=== PATIENT | male | born 1955 | race Caucasian/White ===

== ENCOUNTER 2019-02-04 17:10 | Inpatient (IN) | payer MEDICAID ==
[~2019-02-04] VITALS: Ht 170.2 cm; Wt 75.4 kg
[2019-02-04] MEDS ORDERED: DEXAMETHASONE 10 MG/ML 1 ML INJ IV STA (20:54)
[2019-02-04] MEDS ORDERED: CEFEPIME 2GM/50 ML (PMX) 50 ML IVPB STA (20:54)
[2019-02-04] MEDS ORDERED: ACETAMINOPHEN 325 MG TAB PO STA (20:54)
[2019-02-04] MEDS ORDERED: SODIUM CHLORIDE 0.9% 1L BAG IV* STA (20:54)
[2019-02-04] MEDS ORDERED: IPRATROPIUM (NEB) 0.5 MG/2.5 ML AMP INH STA (20:54)
[2019-02-04] MEDS ORDERED: MAGNESIUM SULFATE 2 GM/50 ML 50 ML IVPB STA (20:54)
[2019-02-04] MEDS ORDERED: ALBUTEROL 0.5% (NEB) 2.5 MG/0.5 ML AMP INH STA (20:54)
[2019-02-04] MEDS ORDERED: VANCOMYCIN 1 GM (PMX) 250 ML IVPB ONE (21:00)
--- NOTE | 2019-02-04 21:04 | ERD ---
ER Documentation Chief Complaint Chief Complaint RDS/SOB WITH HX OF COPD, PT DENIES CP OR DIZZINESS HPI 63-year-old gentleman with a long-term history of smoking who is currently still smoking with potential diagnosis of COPD presents with several days of cough congestion and shortness of breath. Patient does not use home oxygen. No history of coronary disease or CHF. The patient and family members are somewhat limited historian's and limited knowledge about the patient's past medical history. He denies any chest pain. He was noted to have a low-grade temperature at triage. During the patient's encounter translation services were utilized Language: Azeri Source: In person ROS All systems reviewed and are negative except as per history of present illness. Physical Exam Vitals Vital Signs Date Temp Pulse Resp B/P (MAP) Pulse Ox O2 O2 Flow FiO2 Time Delivery Rate 02/04/19 99 2.0 21:18 02/04/19 118 24 99 Nasal 2.0 21:18 Cannula 02/04/19 100.9 130 28 149/75 91 17:26 (99) Physical Exam General: Slight increased work of breathing, talking and slightly shorter sentences Head: Normocephalic, atraumatic. Eyes: Pupils equally reactive, EOM intact ENT: Moist mucous membranes Neck: Supple, no lymphadenopathy Respiratory: Wheezing and rhonchi bilaterally, accessory muscle use Cardiovascular: Tachycardia, no murmurs, rubs, or gallops Abdominal: Soft, non-tender, non-distended, no peritoneal signs : Deferred MSK: No edema, no unilateral swelling, 5/5 strength Neurologic: Alert and oriented, moving all extremities, normal speech, no focal weakness, no cerebellar signs Skin: No rash Psych: Normal mood Result Diagram: 02/04/19210502/04/192105 Results 24 hrs Laboratory Tests Test 02/04/19 21:06 White Blood Count 11.3 10^3/ul Red Blood Count 3.53 10^6/ul Hemoglobin 13.3 g/dl Hematocrit 39.6 % Mean Corpuscular Volume 112.2 fl Mean Corpuscular Hemoglobin 37.7 pg Mean Corpuscular Hemoglobin Concent 33.6 g/dl Red Cell Distribution Width 13.0 % Platelet Count 331 10^3/UL Mean Platelet Volume 8.9 fl Immature Granulocytes % 0.300 % Neutrophils % 76.4 % Lymphocytes % 12.7 % Monocytes % 9.2 % Eosinophils % 1.0 % Basophils % 0.4 % Nucleated Red Blood Cells % 0.0 /100WBC Immature Granulocytes # 0.030 10^3/ul Neutrophils # 8.7 10^3/ul Lymphocytes # 1.4 10^3/ul Monocytes # 1.0 10^3/ul Eosinophils # 0.1 10^3/ul Basophils # 0.0 10^3/ul Nucleated Red Blood Cells # 0.0 10^3/ul Prothrombin Time 12.9 Sec Prothrombin Time Ratio 1.0 INR International Normalized Ratio 0.96 Activated Partial Thromboplast Time 33.3 Sec Urine Color STRAW Urine Clarity CLEAR Urine pH 7.0 Urine Specific [place] 1.010 Urine Ketones NEGATIVE mg/dL Urine Nitrite NEGATIVE mg/dL Urine Bilirubin NEGATIVE mg/dL Urine Urobilinogen NEGATIVE mg/dL Urine Leukocyte Esterase NEGATIVE [place]/ul Urine Microscopic RBC 2 /HPF Urine Microscopic WBC 0 /HPF Urine Hemoglobin 1+ mg/dL Urine Glucose NEGATIVE mg/dL Urine Total Protein NEGATIVE mg/dl Sodium Level 136 mmol/L Potassium Level 4.2 mmol/L Chloride Level 97 mmol/L Carbon Dioxide Level 27 mmol/L Anion Gap 12 Blood Urea Nitrogen 11 mg/dl Creatinine 0.62 mg/dl Est Glomerular Filtrat Rate mL/min > 60 mL/min Glucose Level 125 mg/dl Lactic Acid Level 1.2 mmol/L Calcium Level 9.1 mg/dl Total Bilirubin 0.4 mg/dl Direct Bilirubin 0.00 mg/dl Indirect Bilirubin 0.4 mg/dl Aspartate Amino Transf (AST/SGOT) 44 IU/L Alanine Aminotransferase (ALT/SGPT) 26 IU/L Alkaline Phosphatase 64 IU/L Troponin I < 0.012 ng/ml Total Protein 7.8 g/dl Albumin 4.6 g/dl Globulin 3.20 g/dl Albumin/Globulin Ratio 1.43 Current Medications Medications Dose Sig/Arely Start Time Status Last (Trade) Ordered Route PRN Stop Time Admin Dose Reason Admin Sodium 2,250 ml BOLUS OVER 2 02/04/19 DC 02/04/19 Chloride HOURS STAT 20:54 21:16 (NS) IV* 02/04/19 20:57 650 mg ONCE STAT 02/04/19 DC 02/04/19 Acetaminophen PO 20:54 21:16 (Tylenol 02/04/19 20:57 Tab) Cefepime HCl 50 ml @ ONCE STAT 02/04/19 DC 02/04/19 100 mls/hr IVPB 20:54 21:16 02/04/19 21:23 Vancomycin 250 ml @ ONCE ONCE 02/04/19 HCl 125 mls/hr IVPB 21:00 02/04/19 22:59 Albuterol 15 mg ONCE STAT 02/04/19 DC 02/04/19 (Proventil INH 20:54 21:18 0.5% (Neb)) 02/04/19 20:57 Ipratropium 2 mg ONCE STAT 02/04/19 DC 02/04/19 [place] INH 20:54 21:18 (Atrovent 02/04/19 20:57 0.02% (Neb)) 10 mg ONCE STAT 02/04/19 DC 02/04/19 Dexamethasone IV 20:54 21:16 (Decadron) 02/04/19 20:57 Magnesium 50 ml @ 25 ONCE STAT 02/04/19 02/04/19 Sulfate mls/hr IVPB 20:54 21:29 02/04/19 22:53 Ondansetron 4 mg BRIDGE ORDER 02/04/19 HCl (Zofran PRN IV 22:30 Inj) NAUSEA/VOMITI 02/05/19 22:29 NG 650 mg ER BRIDGE 02/04/19 Acetaminophen PRN PO 22:30 (Tylenol .MILD PAIN 02/05/19 22:29 Tab) 1-3 OR TEMP Procedures/MDM EKG, MONITORS, & DIAGNOSTIC IMAGING: EKG: I reviewed and interpreted a 12-lead EKG. Rhythm: Sinus tachycardia ST Changes: No contiguous ST segment elevations T waves: No contiguous T wave inversions Impression: No evidence of acute cardiac ischemia Chest x-ray: I reviewed and interpreted a 1 view of the chest Mediastinum: No enlargement Cardiac silhouette: No cardiomegaly Airspace: Hyperinflated, possible right lower lobe atelectasis versus infiltrate Bones: No evidence of fracture LAB INTERPRETATION: I reviewed the laboratory testing and it shows no significant leukocytosis and normal lactic acid, negative troponin MEDICAL DECISION MAKING: Clinical signs and symptoms and presentation very consistent with COPD with exacerbation. The patient has Sirs criteria with concern for possible pneumonia. Code sepsis was initiated. At this point the patient is protecting his airway and does not require positive pressure ventilation. Low concern for CHF, acute coronary syndrome, pulmonary embolism. Patient will benefit from aggressive breathing treatments, steroids and broad- spectrum antibiotics ER COURSE: * 30 cc/kg bolus of saline provided, blood cultures prior to broad-spectrum antibiotics, antipyretics, breathing treatment and steroids given. * The patient's symptoms are improving with hour-long breathing treatment and medications as documented above. The patient has no evidence of endorgan dysfunction at this time. Mild oxygen requirement * Medical surgical admission appropriate CONSULTATION: None DISPOSITION PLAN: Accepting care team and consultations: I discussed the current laboratory data, diagnostic imaging and emergency care provided. Admitting team: Dr. Galindo Admitting team indication: Insurance directed Sepsis Documentation: Patient's infectious symptoms have not stabilized and the patient is at risk of rapid decompensation. The patient will be admitted for careful hydration, antibiotic therapy, and infectious source control. SEVERE SEPSIS CRITERIA: Infectious source: Pneumonia End organ damage indicated by: Acute Resp Failure (sat < 92% w/o oxygen) SEPSIS MANAGEMENT Time of recognition of sepsis: Upon MD assessment. Time of recognition of severe sepsis: Upon MD assessment. Time of recognition of septic shock: No septic shock at this time. 3 HOUR BUNDLE Blood cultures x 2 before broad-spectrum antibiotics: Yes 30 ml/kg NS bolus completed Initial lactate less than 2 Repeat lactate less than 2] SEPTIC SHOCK ASSESSMENT: No lactic acid > 4.0 No persistent hypotension (SBP < 90 or 40 mmHg drop, MAP < 65) despite 30 mL/kg IV fluid bolus VOLUME REASSESSMENT FOR SEPTIC SHOCK: The patient does not meet criteria for septic shock in the emergency department at this time PERSISTENT HYPOTENSION TREATMENT: Comfort care no Central line not Required Vasopressor started not required I considered further perfusion assessment with CVP measurement, SCVO2, bedside ultrasound volume assessment, passive leg raise, trial of further fluid bolus. And proceeded with 30 ml/kg fluid bolus of NSS, broad spectrum antibiotics, and admission. CRITICAL CARE Critical care time 35 minutes Emergent fluid management while maintaining close respiratory support. Provision of immediate and broad-spectrum antibiotic therapy. Simultaneous assessment for possible sources in order to direct targeted therapy. Consideration for invasive and chemical support to prevent cardiopulmonary collapse. Critical care time is independent of procedures performed. Departure Diagnosis: Primary Impression: COPD with acute exacerbation Additional Impressions: Pneumonia Pneumonia type: due to unspecified organism Laterality: right Lung location: lower lobe of lung Qualified Codes: J18.1 - Lobar pneumonia, unspecified organism Hypoxia Severe sepsis Condition: Stable KODY NICOLE MD Feb 04, 2019 21:04
[2019-02-04] MEDS ORDERED: ONDANSETRON 4 MG INJ IV PRN (22:30)
[2019-02-04] MEDS ORDERED: ACETAMINOPHEN 325 MG TAB PO PRN (22:30)
[2019-02-04] MEDS ORDERED: EFV600C PO (22:38)
[2019-02-04] MEDS ORDERED: SALBUTAMOL INH (22:42)
[2019-02-04 23:45] VITALS: BP 91/55; PULSE 99; RESP 18
[2019-02-05 01:49] VITALS: BP 145/72; PULSE 111; RESP 18
[2019-02-05 03:00] VITALS: Ht 170.2 cm; Wt 75.4 kg
[2019-02-05] MEDS ORDERED: ALBUTEROL/IPRATROPIUM (NEB) 3 ML AMP HHN PRN (04:00)
[2019-02-05] MEDS ORDERED: ACETAMINOPHEN 325 MG TAB PO PRN (04:00)
[2019-02-05] MEDS ORDERED: ONDANSETRON 4 MG INJ IV PRN (04:00)
[2019-02-05] MEDS ORDERED: NACL 0.9% 3 ML SYG IV SCH (04:00)
[2019-02-05] MEDS ORDERED: LAMI1TAB PO (04:22)
[2019-02-05] MEDS ORDERED: LORAZEPAM 2 MG INJ IV ONE (05:30)
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
[2019-02-05 08:18] VITALS: BP 100/59; PULSE 108; RESP 18
[2019-02-05] MEDS: LEVALBUTEROL (NEB) 0.63 MG/3 ML AMP HHN SCH ×5 (08:55→20:51)
[2019-02-05] MEDS: IPRATROPIUM (NEB) 0.5 MG/2.5 ML AMP HHN SCH ×5 (08:55→20:51)
[2019-02-05] MEDS ORDERED: METHYLPREDNISOLONE 125 MG INJ IV SCH ×3 (09:00→15:00)
[2019-02-05] MEDS: LEVOFLOXACIN 500MG/D5W (PMX) 100 ML IVPB SCH (09:41)
[2019-02-05] MEDS: HEPARIN 5,000 UNIT/1 ML VIAL SC SCH ×2 (09:42→21:28)
[2019-02-05] MEDS: EFAVIRENZ 600 MG TAB PO SCH (12:59)
[2019-02-05] MEDS: LAMIVUDINE/ZIDOVUDINE TAB PO SCH ×2 (12:59→21:29)
[2019-02-05 14:00] VITALS: BP 132/65; PULSE 96; RESP 18
--- NOTE | 2019-02-05 14:38 | PN ---
Date/Time of Note Date/Time of Note DATE: 02/05/19 TIME: 14:32 Assessment/Plan VTE Prophylaxis Risk score (from [place])>0 risk: 3 SCD applied (from [place]): Yes Pharmacological prophylaxis: heparin Lines/Catheters IV [facility] Saline Lock Urinary Cath still in place: No Assessment/Plan Assessment/Plan 1. COPD exacerbation, Supplemental oxygen, bronchodilators, steroid, antibiotic 2. Sepsis, improving 3. HIV disease, Continue home meds 4. Tobacco use, patch 5. DVT prophylaxis: heparin Result Diagram: 02/05/19 0459 02/05/19 0459 Results 24hrs Laboratory Tests Test 02/04/19 21:05 02/04/19 21:06 02/04/19 22:55 02/05/19 00:50 Urine Opiates Screen Negative Urine Barbiturates Negative Urine Amphetamines Negative Screen Urine Negative Benzodiazepines Screen Urine Cocaine Screen Negative Urine Cannabinoids Negative White Blood Count 11.3 H Red Blood Count 3.53 L Hemoglobin 13.3 L Hematocrit 39.6 L Mean Corpuscular 112.2 H Volume Mean Corpuscular 37.7 H Hemoglobin Mean Corpuscular 33.6 Hemoglobin Concent Red Cell 13.0 Distribution Width Platelet Count 331 Mean Platelet Volume 8.9 Immature 0.300 Granulocytes % Neutrophils % 76.4 Lymphocytes % 12.7 L Monocytes % 9.2 Eosinophils % 1.0 Basophils % 0.4 Nucleated Red Blood 0.0 Cells % Immature 0.030 Granulocytes # Neutrophils # 8.7 H Lymphocytes # 1.4 Monocytes # 1.0 H Eosinophils # 0.1 Basophils # 0.0 Nucleated Red Blood 0.0 Cells # Prothrombin Time 12.9 Prothrombin Time 1.0 Ratio INR International 0.96 Normalized Ratio Activated 33.3 Partial Thromboplast Time Urine Color STRAW Urine Clarity CLEAR Urine pH 7.0 Urine Specific 1.010 [place] Urine Ketones NEGATIVE Urine Nitrite NEGATIVE Urine Bilirubin NEGATIVE Urine Urobilinogen NEGATIVE Urine Leukocyte NEGATIVE Esterase Urine Microscopic 2 RBC Urine Microscopic 0 WBC Urine Hemoglobin 1+ H Urine Glucose NEGATIVE Urine Total Protein NEGATIVE Sodium Level 136 Potassium Level 4.2 Chloride Level 97 Carbon Dioxide Level 27 Anion Gap 12 Blood Urea Nitrogen 11 Creatinine 0.62 Est Glomerular > 60 Filtrat Rate mL/min Glucose Level 125 Lactic Acid Level 1.2 0.7 1.1 Calcium Level 9.1 Total Bilirubin 0.4 Direct Bilirubin 0.00 Indirect Bilirubin 0.4 Aspartate Amino 44 Transf (AST/SGOT) Alanine 26 Aminotransferase (AL T/SGPT) Alkaline Phosphatase 64 Troponin I < 0.012 Total Protein 7.8 Albumin 4.6 Globulin 3.20 Albumin/Globulin 1.43 Ratio Test 02/05/19 04:59 02/05/19 06:04 White Blood Count 7.7 # Red Blood Count 3.27 L Hemoglobin 12.3 L Hematocrit 37.5 L Mean Corpuscular 114.7 H Volume Mean Corpuscular 37.6 H Hemoglobin Mean Corpuscular 32.8 Hemoglobin Concent Red Cell 13.0 Distribution Width Platelet Count 306 Mean Platelet Volume 9.1 Immature 0.400 Granulocytes % Neutrophils % 91.6 H Lymphocytes % 6.1 L Monocytes % 1.8 Eosinophils % 0.0 Basophils % 0.1 Nucleated Red Blood 0.0 Cells % Immature 0.030 Granulocytes # Neutrophils # 7.0 Lymphocytes # 0.5 L Monocytes # 0.1 L Eosinophils # 0.0 Basophils # 0.0 Nucleated Red Blood 0.0 Cells # Sodium Level 139 Potassium Level 4.6 Chloride Level 105 Carbon Dioxide Level 25 Anion Gap 9 Blood Urea Nitrogen 10 Creatinine 0.54 L Est Glomerular > 60 Filtrat Rate mL/min Glucose Level 156 Calcium Level 8.6 Phosphorus Level 3.3 Magnesium Level 2.4 Total Bilirubin 0.3 Direct Bilirubin 0.00 Indirect Bilirubin 0.3 Aspartate Amino 42 Transf (AST/SGOT) Alanine 21 Aminotransferase (AL T/SGPT) Alkaline Phosphatase 54 Total Protein 6.9 Albumin 3.8 Globulin 3.10 Albumin/Globulin 1.22 Ratio Ethyl Alcohol Level < 10.0 H Subjective 24 Hr Interval Summary Free Text/Dictation shortness of breath and wheezing, less than yesterday Exam/Review of Systems Exam Vitals Vital Signs Date Temp Pulse Resp B/P (MAP) Pulse Ox O2 O2 Flow FiO2 Time Delivery Rate 02/05/19 106 20 94 Nasal 4.0 13:43 Cannula 02/05/19 97.3 100/59 08:18 (73) Intake and Output 02/04/19 02/04/19 02/05/19 1515:00 23:00 07:00 IntakeIntake Total 2600 ml OutputOutput Total 600 ml BalanceBalance 2000 ml Constitutional: alert, oriented, well developed Head: normocephalic, atraumatic Eyes: nl conjunctiva, EOMI, nl lids, PERRL ENMT: nl external ears & nose, nl lips & teeth, nl nasal mucosa & septum Neck: supple, non-tender Respiratory: wheezing (diffuse) Cardiovascular: regular rate and rhythm, nl pulses; No bruits, No diastolic murmur, No edema, No gallop, No irregular rhythm, No jugular venous distention (JVD), No murmurs/extra sounds, No rub, No systolic murmur, No S3, No S4, No other Gastrointestinal: soft, nl liver, spleen, non-tender Musculoskeletal: nl extremities to inspection Extremities: normal pulses; No calf tenderness, No cyanosis, No clubbing, No edema, No pitting pedal edema, No palpable cord, No tenderness, No other Neurological: [employer] II-XII intact, nl mental status, nl speech, nl strength Results Results 24hrs Laboratory Tests Test 02/04/19 21:05 02/04/19 21:06 02/04/19 22:55 02/05/19 00:50 Urine Opiates Screen Negative Urine Barbiturates Negative Urine Amphetamines Negative Screen Urine Negative Benzodiazepines Screen Urine Cocaine Screen Negative Urine Cannabinoids Negative White Blood Count 11.3 H Red Blood Count 3.53 L Hemoglobin 13.3 L Hematocrit 39.6 L Mean Corpuscular 112.2 H Volume Mean Corpuscular 37.7 H Hemoglobin Mean Corpuscular 33.6 Hemoglobin Concent Red Cell 13.0 Distribution Width Platelet Count 331 Mean Platelet Volume 8.9 Immature 0.300 Granulocytes % Neutrophils % 76.4 Lymphocytes % 12.7 L Monocytes % 9.2 Eosinophils % 1.0 Basophils % 0.4 Nucleated Red Blood 0.0 Cells % Immature 0.030 Granulocytes # Neutrophils # 8.7 H Lymphocytes # 1.4 Monocytes # 1.0 H Eosinophils # 0.1 Basophils # 0.0 Nucleated Red Blood 0.0 Cells # Prothrombin Time 12.9 Prothrombin Time 1.0 Ratio INR International 0.96 Normalized Ratio Activated 33.3 Partial Thromboplast Time Urine Color STRAW Urine Clarity CLEAR Urine pH 7.0 Urine Specific 1.010 [place] Urine Ketones NEGATIVE Urine Nitrite NEGATIVE Urine Bilirubin NEGATIVE Urine Urobilinogen NEGATIVE Urine Leukocyte NEGATIVE Esterase Urine Microscopic 2 RBC Urine Microscopic 0 WBC Urine Hemoglobin 1+ H Urine Glucose NEGATIVE Urine Total Protein NEGATIVE Sodium Level 136 Potassium Level 4.2 Chloride Level 97 Carbon Dioxide Level 27 Anion Gap 12 Blood Urea Nitrogen 11 Creatinine 0.62 Est Glomerular > 60 Filtrat Rate mL/min Glucose Level 125 Lactic Acid Level 1.2 0.7 1.1 Calcium Level 9.1 Total Bilirubin 0.4 Direct Bilirubin 0.00 Indirect Bilirubin 0.4 Aspartate Amino 44 Transf (AST/SGOT) Alanine 26 Aminotransferase (AL T/SGPT) Alkaline Phosphatase 64 Troponin I < 0.012 Total Protein 7.8 Albumin 4.6 Globulin 3.20 Albumin/Globulin 1.43 Ratio Test 02/05/19 04:59 02/05/19 06:04 White Blood Count 7.7 # Red Blood Count 3.27 L Hemoglobin 12.3 L Hematocrit 37.5 L Mean Corpuscular 114.7 H Volume Mean Corpuscular 37.6 H Hemoglobin Mean Corpuscular 32.8 Hemoglobin Concent Red Cell 13.0 Distribution Width Platelet Count 306 Mean Platelet Volume 9.1 Immature 0.400 Granulocytes % Neutrophils % 91.6 H Lymphocytes % 6.1 L Monocytes % 1.8 Eosinophils % 0.0 Basophils % 0.1 Nucleated Red Blood 0.0 Cells % Immature 0.030 Granulocytes # Neutrophils # 7.0 Lymphocytes # 0.5 L Monocytes # 0.1 L Eosinophils # 0.0 Basophils # 0.0 Nucleated Red Blood 0.0 Cells # Sodium Level 139 Potassium Level 4.6 Chloride Level 105 Carbon Dioxide Level 25 Anion Gap 9 Blood Urea Nitrogen 10 Creatinine 0.54 L Est Glomerular > 60 Filtrat Rate mL/min Glucose Level 156 Calcium Level 8.6 Phosphorus Level 3.3 Magnesium Level 2.4 Total Bilirubin 0.3 Direct Bilirubin 0.00 Indirect Bilirubin 0.3 Aspartate Amino 42 Transf (AST/SGOT) Alanine 21 Aminotransferase (AL T/SGPT) Alkaline Phosphatase 54 Total Protein 6.9 Albumin 3.8 Globulin 3.10 Albumin/Globulin 1.22 Ratio Ethyl Alcohol Level < 10.0 H Medications Medication Current Medications Ondansetron HCl (Zofran Inj) 4 mg BRIDGE ORDER PRN IV NAUSEA/VOMITING; Start 02/04/19 at 22:30; Stop 02/05/19 at 22:29 Acetaminophen (Tylenol Tab) 650 mg ER BRIDGE PRN PO .MILD PAIN 1-3 OR TEMP; Sta rt 02/04/19 at 22:30; Stop 02/05/19 at 22:29 IV Flush (NS 3 ml) 3 ml PER PROTOCOL IV ; Start 02/05/19 at 04:00 Ondansetron HCl (Zofran Inj) 4 mg Q6H PRN IV NAUSEA/VOMITING; Start 02/05/19 at 04:00 Acetaminophen (Tylenol Tab) 650 mg Q6H PRN PO .PAIN 1-3 OR TEMP; Start 02/05/19 at 04:00 Heparin Sodium (Porcine) (Heparin (5000 Units/1ml)) 5,000 unit Q12 SC Last administered on 02/05/19 09:42; Admin Dose 5,000 UNIT; Start 02/05/19 at 09:00 Albuterol/ Ipratropium (Duoneb) 3 ml Q2H RESP THERAPY PRN HHN SHORTNESS OF BREATH; Start 02/05/19 at 04:00 Efavirenz (Sustiva) 600 mg DAILY PO Last administered on 02/05/19 12:59; Admin Dose 600 MG; Start 02/05/19 at 09:00 Lamivudine/ Zidovudine (Combivir) 1 tab BID PO Last administered on 02/05/19 12:59; Admin Dose 1 TAB; Start 02/05/19 at 10:00 Levalbuterol (Xopenex Neb) 0.63 mg Q3H RESP THERAPY HHN Last administered on 02/05/19 13:43; Admin Dose 0.63 MG; Start 02/05/19 at 08:00 Ipratropium [place] (Atrovent 0.02% (Neb)) 0.5 mg Q3H RESP THERAPY HHN Last administered on 02/05/19 13:43; Admin Dose 0.5 MG; Start 02/05/19 at 08:00 Methylprednisolone Sodium Succinate (Solu-Medrol) 125 mg Q12 IV Last administered on 02/05/19 09:41; Admin Dose 125 MG; Start 02/05/19 at 09:00 Levofloxacin/ Dextrose 100 ml @ 100 mls/hr Q24H IVPB Last administered on 02/05/19 09:41; Admin Dose 100 MLS/HR; Start 02/05/19 at 09:00 DARRIAN GANDARA MD Feb 05, 2019 14:38
[2019-02-05] MEDS: NICOTINE (21 MG/24 HR) PATCH TRANSDERM SCH (15:10)
[2019-02-05] MEDS: METHYLPREDNISOLONE 40 MG INJ IV SCH ×2 (18:05→23:42)
[2019-02-05 20:30] VITALS: BP 129/70; PULSE 76; RESP 20
[2019-02-06] MEDS: IPRATROPIUM (NEB) 0.5 MG/2.5 ML AMP HHN SCH ×9 (00:20→23:11)
[2019-02-06] MEDS: LEVALBUTEROL (NEB) 0.63 MG/3 ML AMP HHN SCH ×9 (00:20→23:11)
[2019-02-06 02:10] VITALS: BP 108/57; PULSE 104; RESP 18
[2019-02-06] MEDS: METHYLPREDNISOLONE 40 MG INJ IV SCH ×3 (06:44→17:17)
[2019-02-06 08:24] VITALS: BP 116/63; PULSE 104; RESP 20
[2019-02-06] MEDS: HEPARIN 5,000 UNIT/1 ML VIAL SC SCH ×2 (08:31→20:40)
[2019-02-06] MEDS: EFAVIRENZ 600 MG TAB PO SCH (08:33)
[2019-02-06] MEDS: LAMIVUDINE/ZIDOVUDINE TAB PO SCH ×2 (08:34→20:39)
[2019-02-06] MEDS: LEVOFLOXACIN 500MG/D5W (PMX) 100 ML IVPB SCH (08:35)
[2019-02-06] MEDS: NICOTINE (21 MG/24 HR) PATCH TRANSDERM SCH (08:56)
[2019-02-06 14:09] VITALS: BP 147/80; PULSE 110; RESP 22
--- NOTE | 2019-02-06 15:07 | PN ---
Date/Time of Note Date/Time of Note DATE: 02/06/19 TIME: 15:06 Assessment/Plan VTE Prophylaxis Risk score (from Ns)>0 risk: 4 SCD applied (from Ns): Yes Pharmacological prophylaxis: heparin Lines/Catheters [facility] Saline Lock Urinary Cath still in place: No Assessment/Plan Assessment/Plan 1. COPD exacerbation, improving on Supplemental oxygen, bronchodilators, steroid, antibiotic, decrease steroid 2. Sepsis, improving 3. HIV disease, Continue home meds 4. Tobacco use, patch 5. DVT prophylaxis: heparin 6. Home tomorrow if stable Result Diagram: 02/06/1945602/06/197 Results 24hrs Laboratory Tests Test 02/06/19 04:57 White Blood Count 9.2 Red Blood Count 3.17 L Hemoglobin 12.2 L Hematocrit 35.5 L Mean Corpuscular Volume 112.0 H Mean Corpuscular Hemoglobin 38.5 H Mean Corpuscular Hemoglobin Concent 34.4 Red Cell Distribution Width 12.4 Platelet Count 331 Mean Platelet Volume 9.3 Immature Granulocytes % 0.400 Neutrophils % 88.8 H Lymphocytes % 6.5 L Monocytes % 4.2 Eosinophils % 0.0 Basophils % 0.1 Nucleated Red Blood Cells % 0.0 Immature Granulocytes # 0.040 H Neutrophils # 8.2 H Lymphocytes # 0.6 L Monocytes # 0.4 Eosinophils # 0.0 Basophils # 0.0 Nucleated Red Blood Cells # 0.0 Sodium Level 140 Potassium Level 4.1 Chloride Level 102 Carbon Dioxide Level 26 Anion Gap 12 Blood Urea Nitrogen 14 Creatinine 0.58 L Est Glomerular Filtrat Rate mL/min > 60 Glucose Level 148 Calcium Level 9.1 Phosphorus Level 3.8 Magnesium Level 2.0 Subjective 24 Hr Interval Summary Free Text/Dictation less shortness of breath. still with difficulty in finishing one sentence. Exam/Review of Systems Exam Vitals Vital Signs Date Temp Pulse Resp B/P (MAP) Pulse Ox O2 O2 Flow FiO2 Time Delivery Rate 02/06/19 98.0 110 22 147/80 94 Room Air 14:09 (102) 02/06/19 21 11:44 02/06/19 2.0 09:16 Intake and Output 02/05/19 02/05/19 02/06/19 1515:00 23:00 07:00 IntakeIntake Total 220 ml 1100 ml 320 ml OutputOutput Total 510 ml BalanceBalance -290 ml 1100 ml 320 ml Constitutional: alert, oriented, well developed Psych: no complaints, nl mood/affect Head: normocephalic, atraumatic Eyes: nl conjunctiva, EOMI, nl lids ENMT: nl external ears & nose, nl lips & teeth, nl nasal mucosa & septum Neck: supple, non-tender Respiratory: diminished breath sounds Cardiovascular: regular rate and rhythm, nl pulses; No bruits, No diastolic murmur, No edema, No gallop, No irregular rhythm, No jugular venous distention (JVD), No murmurs/extra sounds, No rub, No systolic murmur, No S3, No S4, No other Gastrointestinal: soft, nl liver, spleen, non-tender Musculoskeletal: nl extremities to inspection Extremities: normal pulses; No calf tenderness, No cyanosis, No clubbing, No edema, No pitting pedal edema, No palpable cord, No tenderness, No other Neurological: AUTOMATED TELLER MANAGER II-XII intact, nl mental status, nl speech, nl strength Results Results 24hrs Laboratory Tests Test 02/06/19 04:57 White Blood Count 9.2 Red Blood Count 3.17 L Hemoglobin 12.2 L Hematocrit 35.5 L Mean Corpuscular Volume 112.0 H Mean Corpuscular Hemoglobin 38.5 H Mean Corpuscular Hemoglobin Concent 34.4 Red Cell Distribution Width 12.4 Platelet Count 331 Mean Platelet Volume 9.3 Immature Granulocytes % 0.400 Neutrophils % 88.8 H Lymphocytes % 6.5 L Monocytes % 4.2 Eosinophils % 0.0 Basophils % 0.1 Nucleated Red Blood Cells % 0.0 Immature Granulocytes # 0.040 H Neutrophils # 8.2 H Lymphocytes # 0.6 L Monocytes # 0.4 Eosinophils # 0.0 Basophils # 0.0 Nucleated Red Blood Cells # 0.0 Sodium Level 140 Potassium Level 4.1 Chloride Level 102 Carbon Dioxide Level 26 Anion Gap 12 Blood Urea Nitrogen 14 Creatinine 0.58 L Est Glomerular Filtrat Rate mL/min > 60 Glucose Level 148 Calcium Level 9.1 Phosphorus Level 3.8 Magnesium Level 2.0 Medications Medication Current Medications IV Flush (NS 3 ml) 3 ml PER PROTOCOL IV ; Start 02/05/19 at 04:00 Ondansetron HCl (Zofran Inj) 4 mg Q6H PRN IV NAUSEA/VOMITING; Start 02/05/19 at 04:00 Acetaminophen (Tylenol Tab) 650 mg Q6H PRN PO .PAIN 1-3 OR TEMP; Start 02/05/19 at 04:00 Heparin Sodium (Porcine) (Heparin (5000 Units/1ml)) 5,000 unit Q12 SC Last administered on 02/06/19 08:31; Admin Dose 5,000 UNIT; Start 02/05/19 at 09:00 Albuterol/ Ipratropium (Duoneb) 3 ml Q2H RESP THERAPY PRN HHN SHORTNESS OF BREATH; Start 02/05/19 at 04:00 Efavirenz (Sustiva) 600 mg DAILY PO Last administered on 02/06/19 08:33; Admin Dose 600 MG; Start 02/05/19 at 09:00 Lamivudine/ Zidovudine (Combivir) 1 tab BID PO Last administered on 02/06/19 08:34; Admin Dose 1 TAB; Start 02/05/19 at 10:00 Levalbuterol (Xopenex Neb) 0.63 mg Q3H RESP THERAPY HHN Last administered on 02/06/19 04:57; Admin Dose 0.63 MG; Start 02/05/19 at 08:00 Ipratropium [place] (Atrovent 0.02% (Neb)) 0.5 mg Q3H RESP THERAPY HHN Last administered on 02/06/19 11:42; Admin Dose 0.5 MG; Start 02/05/19 at 08:00 Levofloxacin/ Dextrose 100 ml @ 100 mls/hr Q24H IVPB Last administered on 02/06/19 08:35; Admin Dose 100 MLS/HR; Start 02/05/19 at 09:00 Nicotine (Nicoderm 21 Mg/ 24hr) 1 patch DAILY TRANSDERM Last administered on 02/06/19 08:56; Admin Dose 1 PATCH; Start 02/05/19 at 15:00 Methylprednisolone Sodium Succinate (Solu-Medrol) 40 mg Q6 IV Last administered on 02/06/19 11:26; Admin Dose 40 MG; Start 02/05/19 at 18:00 DARRIAN GANDARA MD Feb 06, 2019 15:07
[2019-02-06 19:59] VITALS: BP 145/69; PULSE 113; RESP 20
[2019-02-07] MEDS: METHYLPREDNISOLONE 40 MG INJ IV SCH ×4 (00:50→18:00)
[2019-02-07 02:18] VITALS: BP 129/58; PULSE 102; RESP 20
[2019-02-07] MEDS: LEVALBUTEROL (NEB) 0.63 MG/3 ML AMP HHN SCH ×8 (02:31→23:53)
[2019-02-07] MEDS: IPRATROPIUM (NEB) 0.5 MG/2.5 ML AMP HHN SCH ×8 (02:31→23:53)
[2019-02-07 08:00] VITALS: BP 113/58; PULSE 79; RESP 18
[2019-02-07] MEDS: LEVOFLOXACIN 500MG/D5W (PMX) 100 ML IVPB SCH (08:42)
[2019-02-07] MEDS: NICOTINE (21 MG/24 HR) PATCH TRANSDERM SCH (08:43)
[2019-02-07] MEDS: EFAVIRENZ 600 MG TAB PO SCH ×2 (08:43→11:54)
[2019-02-07] MEDS: HEPARIN 5,000 UNIT/1 ML VIAL SC SCH ×2 (08:47→22:09)
[2019-02-07] MEDS ORDERED: CEPASTAT LOZENGE MT PRN (09:30)
[2019-02-07] MEDS ORDERED: TAMSULOSIN (SR) 0.4 MG CAP PO ONE (11:41)
[2019-02-07] MEDS: TAMSULOSIN (SR) 0.4 MG CAP PO SCH (11:54)
[2019-02-07] MEDS: LAMIVUDINE/ZIDOVUDINE TAB PO SCH ×2 (12:21→22:08)
--- NOTE | 2019-02-07 13:55 | PN ---
Date/Time of Note Date/Time of Note DATE: 02/07/19 TIME: 13:53 Assessment/Plan VTE Prophylaxis Risk score (from Ns)>0 risk: 3 SCD applied (from [facility] [place]): Yes Pharmacological prophylaxis: heparin Lines/Catheters IV Catheter Type (from [facility]): Saline Lock Urinary Cath still in place: No Assessment/Plan Assessment/Plan 1. COPD exacerbation, improving on Supplemental oxygen, bronchodilators, steroid, antibiotic 2. Sepsis, improved 3. HIV disease, Continue home meds 4. Tobacco use, patch 5. DVT prophylaxis: heparin Result Diagram: 02/06/1945602/06/19456 Subjective 24 Hr Interval Summary Free Text/Dictation still wheezing, better than yesterday Exam/Review of Systems Exam Vitals Vital Signs Date Temp Pulse Resp B/P (MAP) Pulse Ox O2 O2 Flow FiO2 Time Delivery Rate 02/07/19 92 2.0 13:10 02/07/19 101 18 Nasal 13:04 Cannula 02/07/19 21 10:51 02/07/19 98.6 113/58 08:00 (76) Intake and Output 02/06/19 02/06/19 02/07/19 1515:00 23:00 07:00 IntakeIntake Total 1360 ml 320 ml 350 ml OutputOutput Total 100 ml BalanceBalance 1260 ml 320 ml 350 ml Constitutional: alert, oriented, well developed Psych: no complaints, nl mood/affect Head: normocephalic, atraumatic Eyes: nl conjunctiva, EOMI, nl sclera, PERRL ENMT: nl external ears & nose, nl lips & teeth, nl nasal mucosa & septum, mucosa pink and moist Neck: supple, non-tender Respiratory: wheezing Cardiovascular: regular rate and rhythm, nl pulses; No bruits, No diastolic murmur, No edema, No gallop, No irregular rhythm, No jugular venous distention (JVD), No murmurs/extra sounds, No rub, No systolic murmur, No S3, No S4, No other Gastrointestinal: soft, nl liver, spleen, non-tender Musculoskeletal: nl extremities to inspection Extremities: normal pulses; No calf tenderness, No cyanosis, No clubbing, No edema, No pitting pedal edema, No palpable cord, No tenderness, No other Neurological: PET TRAINER II-XII intact, nl mental status, nl speech, nl strength Medications Medication Current Medications IV Flush (NS 3 ml) 3 ml PER PROTOCOL IV ; Start 02/05/19 at 04:00 Ondansetron HCl (Zofran Inj) 4 mg Q6H PRN IV NAUSEA/VOMITING; Start 02/05/19 at 04:00 Acetaminophen (Tylenol Tab) 650 mg Q6H PRN PO .PAIN 1-3 OR TEMP; Start 02/05/19 at 04:00 Heparin Sodium (Porcine) (Heparin (5000 Units/1ml)) 5,000 unit Q12 SC Last administered on 02/07/19 08:47; Admin Dose 5,000 UNIT; Start 02/05/19 at 09:00 Albuterol/ Ipratropium (Duoneb) 3 ml Q2H RESP THERAPY PRN HHN SHORTNESS OF BREATH Last administered on 02/07/19 00:39; Admin Dose 3 ML; Start 02/05/19 at 04:00 Efavirenz (Sustiva) 600 mg DAILY PO Last administered on 02/07/19 08:43; Admin Dose 600 MG; Start 02/05/19 at 09:00 Lamivudine/ Zidovudine (Combivir) 1 tab BID PO Last administered on 02/07/19 12:21; Admin Dose 1 TAB; Start 02/05/19 at 10:00 Levalbuterol (Xopenex Neb) 0.63 mg Q3H RESP THERAPY HHN Last administered on 02/07/19 13:04; Admin Dose 0.63 MG; Start 02/05/19 at 08:00 Ipratropium [place] (Atrovent 0.02% (Neb)) 0.5 mg Q3H RESP THERAPY HHN Last administered on 02/07/19 13:04; Admin Dose 0.5 MG; Start 02/05/19 at 08:00 Levofloxacin/ Dextrose 100 ml @ 100 mls/hr Q24H IVPB Last administered on 02/07/19 08:42; Admin Dose 100 MLS/HR; Start 02/05/19 at 09:00 Nicotine (Nicoderm 21 Mg/ 24hr) 1 patch DAILY TRANSDERM Last administered on 02/07/19 08:43; Admin Dose 1 PATCH; Start 02/05/19 at 15:00 Methylprednisolone Sodium Succinate (Solu-Medrol) 40 mg Q6 IV Last administered on 02/07/19at 12:25; Admin Dose 40 MG; Start 02/05/19 at 18:00 Tamsulosin HCl (Flomax) 0.4 mg HS PO Last administered on 02/07/19at 11:54; Admin Dose 0.4 MG; Start 02/07/19 at 21:00 Phenol (Cepastat Lozenge) 1 lozenge Q1H PRN MT SORE THROAT; Start 02/07/19 at 09:30 DARRIAN GANDARA MD Feb 07, 2019 13:55
[2019-02-07 14:10] VITALS: BP 127/65; PULSE 94; RESP 20
[2019-02-07 20:00] VITALS: BP 118/68; PULSE 106; RESP 19
[2019-02-08] MEDS: METHYLPREDNISOLONE 40 MG INJ IV SCH ×4 (00:52→17:31)
[2019-02-08] MEDS: IPRATROPIUM (NEB) 0.5 MG/2.5 ML AMP HHN SCH ×8 (01:57→22:59)
[2019-02-08] MEDS: LEVALBUTEROL (NEB) 0.63 MG/3 ML AMP HHN SCH ×8 (01:57→22:59)
[2019-02-08 02:00] VITALS: BP 120/68; PULSE 101; RESP 18
[2019-02-08] MEDS: LEVOFLOXACIN 500 MG TAB PO SCH (06:32)
[2019-02-08 08:00] VITALS: BP 120/64; PULSE 89; RESP 18
[2019-02-08] MEDS: NICOTINE (21 MG/24 HR) PATCH TRANSDERM SCH (08:03)
[2019-02-08] MEDS: EFAVIRENZ 600 MG TAB PO SCH (08:03)
[2019-02-08] MEDS: LAMIVUDINE/ZIDOVUDINE TAB PO SCH ×2 (08:03→20:14)
[2019-02-08] MEDS: HEPARIN 5,000 UNIT/1 ML VIAL SC SCH ×2 (08:07→20:15)
[2019-02-08 14:05] VITALS: BP 109/46; PULSE 64; RESP 18
--- NOTE | 2019-02-08 18:13 | PN ---
Date/Time of Note Date/Time of Note DATE: 02/08/19 TIME: 18:10 Assessment/Plan VTE Prophylaxis Risk score (from Ns)>0 risk: 3 [place] [facility] [place] SCD contraindicated: other Pharmacological prophylaxis: heparin Lines/Catheters IV C[facility] Type (from [facility] Saline Lock Urinary Cath still in place: No Assessment/Plan Hospital Course S: Patient has slightly less shortness of breath since yesterday. O: VS - see below PE: Constitutional: alert, oriented, well developed Psych: no complaints, nl mood/affect Head: normocephalic, atraumatic Eyes: nl conjunctiva, EOMI, nl sclera, PERRL ENMT: nl external ears & nose, nl lips & teeth, nl nasal mucosa & septum, mucosa pink and moist Neck: supple, non-tender Respiratory: wheezing less Cardiovascular: regular rate and rhythm, nl pulses; Gastrointestinal: soft, nl liver, spleen, non-tender Musculoskeletal: nl extremities to inspection Extremities: No lower extremity edema bilaterally Neurological: No focal deficits Assessment/Plan: 63 M presents with: 1. COPD exacerbation-slowly improving improving on Supplemental oxygen -Continue bronchodilators, steroid, antibiotic 2. Sepsis, improved -see #1 3. HIV disease-CD4 count 61 - continue home HIV medications meds 4. Tobacco use, patch, counseled on cessation 5. DVT prophylaxis: heparin Result Diagram: 02/08/1941802/08/19418 Results 24hrs Laboratory Tests Test 02/08/19 04:19 White Blood Count 5.5 # Red Blood Count 3.55 L Hemoglobin 13.3 L Hematocrit 38.8 L Mean Corpuscular Volume 109.3 H Mean Corpuscular Hemoglobin 37.5 H Mean Corpuscular Hemoglobin Concent 34.3 Red Cell Distribution Width 12.1 Platelet Count 326 Mean Platelet Volume 9.1 Immature Granulocytes % 0.200 Neutrophils % 81.8 H Lymphocytes % 13.0 L Monocytes % 5.0 Eosinophils % 0.0 Basophils % 0.0 Nucleated Red Blood Cells % 0.0 Immature Granulocytes # 0.010 Neutrophils # 4.5 Lymphocytes # 0.7 L Monocytes # 0.3 Eosinophils # 0.0 Basophils # 0.0 Nucleated Red Blood Cells # 0.0 Sodium Level 138 Potassium Level 4.4 Chloride Level 101 Carbon Dioxide Level 28 Anion Gap 9 Blood Urea Nitrogen 15 Creatinine 0.61 Est Glomerular Filtrat Rate mL/min > 60 Glucose Level 113 Calcium Level 9.1 Exam/Review of Systems Exam Vitals Vital Signs Date Temp Pulse Resp B/P (MAP) Pulse Ox O2 O2 Flow FiO2 Time Delivery Rate 02/08/19 106 24 95 Nasal 2.0 16:50 Cannula 02/08/19 98.9 109/46 14:05 (67) 02/07/19 21 15:24 Intake and Output 02/07/19 02/07/19 02/08/19 1515:00 23:00 07:00 IntakeIntake Total 930 ml 120 ml OutputOutput Total 250 ml BalanceBalance 680 ml 120 ml Results Results 24hrs Laboratory Tests Test 02/08/19 04:19 White Blood Count 5.5 # Red Blood Count 3.55 L Hemoglobin 13.3 L Hematocrit 38.8 L Mean Corpuscular Volume 109.3 H Mean Corpuscular Hemoglobin 37.5 H Mean Corpuscular Hemoglobin Concent 34.3 Red Cell Distribution Width 12.1 Platelet Count 326 Mean Platelet Volume 9.1 Immature Granulocytes % 0.200 Neutrophils % 81.8 H Lymphocytes % 13.0 L Monocytes % 5.0 Eosinophils % 0.0 Basophils % 0.0 Nucleated Red Blood Cells % 0.0 Immature Granulocytes # 0.010 Neutrophils # 4.5 Lymphocytes # 0.7 L Monocytes # 0.3 Eosinophils # 0.0 Basophils # 0.0 Nucleated Red Blood Cells # 0.0 Sodium Level 138 Potassium Level 4.4 Chloride Level 101 Carbon Dioxide Level 28 Anion Gap 9 Blood Urea Nitrogen 15 Creatinine 0.61 Est Glomerular Filtrat Rate mL/min > 60 Glucose Level 113 Calcium Level 9.1 Medications Medication Current Medications IV Flush (NS 3 ml) 3 ml PER PROTOCOL IV ; Start 02/05/19 at 04:00 Ondansetron HCl (Zofran Inj) 4 mg Q6H PRN IV NAUSEA/VOMITING; Start 02/05/19 at 04:00 Acetaminophen (Tylenol Tab) 650 mg Q6H PRN PO .PAIN 1-3 OR TEMP; Start 02/05/19 at 04:00 Heparin Sodium (Porcine) (Heparin (5000 Units/1ml)) 5,000 unit Q12 SC Last administered on 02/08/19at 08:07; Admin Dose 5,000 UNIT; Start 02/05/19 at 09:00 Albuterol/ Ipratropium (Duoneb) 3 ml Q2H RESP THERAPY PRN HHN SHORTNESS OF BREATH Last administered on 02/07/19 00:39; Admin Dose 3 ML; Start 02/05/19 at 04:00 Efavirenz (Sustiva) 600 mg DAILY PO Last administered on 02/08/19 08:03; Admin Dose 600 MG; Start 02/05/19 at 09:00 Lamivudine/ Zidovudine (Combivir) 1 tab BID PO Last administered on 02/08/19 08:03; Admin Dose 1 TAB; Start 02/05/19 at 10:00 Levalbuterol (Xopenex Neb) 0.63 mg Q3H RESP THERAPY HHN Last administered on 02/08/19 16:49; Admin Dose 0.63 MG; Start 02/05/19 at 08:00 Ipratropium [place] (Atrovent 0.02% (Neb)) 0.5 mg Q3H RESP THERAPY HHN Last administered on 02/08/19 16:49; Admin Dose 0.5 MG; Start 02/05/19 at 08:00 Nicotine (Nicoderm 21 Mg/ 24hr) 1 patch DAILY TRANSDERM Last administered on 02/08/19 08:03; Admin Dose 1 PATCH; Start 02/05/19 at 15:00 Methylprednisolone Sodium Succinate (Solu-Medrol) 40 mg Q6 IV Last administered on 02/08/19 17:31; Admin Dose 40 MG; Start 02/05/19 at 18:00 Tamsulosin HCl (Flomax) 0.4 mg HS PO Last administered on 02/07/19 11:54; Admin Dose 0.4 MG; Start 02/07/19 at 21:00 Phenol (Cepastat Lozenge) 1 lozenge Q1H PRN MT SORE THROAT Last administered on 02/07/19 16:27; Admin Dose 1 LOZENGE; Start 02/07/19 at 09:30 Levofloxacin (Levaquin) 500 mg DAILY@06 PO Last administered on 02/08/19 06:32; Admin Dose 500 MG; Start 02/08/19 at 06:00 ERIKA CARO Feb 08, 2019 18:13
[2019-02-08 20:00] VITALS: BP 136/68; PULSE 93; RESP 22
[2019-02-08] MEDS: TAMSULOSIN (SR) 0.4 MG CAP PO SCH (20:14)
[2019-02-09] MEDS: METHYLPREDNISOLONE 40 MG INJ IV SCH ×4 (00:51→18:10)
[2019-02-09 02:00] VITALS: BP 114/58; PULSE 94; RESP 17
[2019-02-09] MEDS: LEVALBUTEROL (NEB) 0.63 MG/3 ML AMP HHN SCH ×8 (02:40→22:55)
[2019-02-09] MEDS: IPRATROPIUM (NEB) 0.5 MG/2.5 ML AMP HHN SCH ×8 (02:40→22:55)
[2019-02-09] MEDS: LEVOFLOXACIN 500 MG TAB PO SCH (05:31)
[2019-02-09 08:26] VITALS: BP 110/65; PULSE 101; RESP 18
[2019-02-09] MEDS: LAMIVUDINE/ZIDOVUDINE TAB PO SCH ×2 (08:38→21:52)
[2019-02-09] MEDS: EFAVIRENZ 600 MG TAB PO SCH (08:38)
[2019-02-09] MEDS: HEPARIN 5,000 UNIT/1 ML VIAL SC SCH ×2 (08:39→21:53)
[2019-02-09] MEDS: NICOTINE (21 MG/24 HR) PATCH TRANSDERM SCH (08:39)
--- NOTE | 2019-02-09 15:05 | PN ---
Date/Time of Note Date/Time of Note DATE: 02/09/19 TIME: 15:02 Assessment/Plan VTE Prophylaxis Risk score (from Ns)>0 risk: 3 SCD applied (from Ns): No SCD contraindicated: other Pharmacological prophylaxis: heparin Lines/Catheters IV Catheter Type (from [facility]): Saline Lock Urinary Cath still in place: No Assessment/Plan Hospital Course S: Nurse found patient watching pornography on his cell phone with the volume turned up (he is hard of hearing), but other than that patient has been compliant, alert and oriented, less shortness of breath overall. Tolerating diet. Stable O2 sats in bed, but when ambulating however desaturates to mid 70 range on room air. O: VS - see below PE: Constitutional: alert, oriented, well developed Psych: no complaints, nl mood/affect Head: normocephalic, atraumatic Eyes: nl conjunctiva, EOMI, nl sclera, PERRL ENMT: nl external ears & nose, nl lips & teeth, nl nasal mucosa & septum, mucosa pink and moist Neck: supple, non-tender Respiratory: slightly decreased breath sounds bilaterally, very minimal wheezes heard bilaterally at the bases Cardiovascular: regular rate and rhythm, nl pulses; Gastrointestinal: soft, nl liver, spleen, non-tender Musculoskeletal: nl extremities to inspection Extremities: No lower extremity edema bilaterally Neurological: No focal deficits Assessment/Plan: 63 M presents with: 1. COPD exacerbation-slowly improving improving on Supplemental oxygen, but desaturating when ambulating on room air to mid 70 range today -Continue bronchodilators, steroid, antibiotic -Continue oxygen supplementation for now 2. Sepsis, improved -see #1 3. HIV disease-CD4 count 61 - continue home HIV medications meds 4. Tobacco use, patch, counseled on cessation 5. DVT prophylaxis: heparin Result Diagram: 02/09/1942602/09/19426 Results 24hrs Laboratory Tests Test 02/09/19 04:27 White Blood Count 5.5 Red Blood Count 3.59 L Hemoglobin 13.5 L Hematocrit 39.4 L Mean Corpuscular Volume 109.7 H Mean Corpuscular Hemoglobin 37.6 H Mean Corpuscular Hemoglobin Concent 34.3 Red Cell Distribution Width 12.0 Platelet Count 323 Mean Platelet Volume 9.5 Immature Granulocytes % 0.500 H Neutrophils % 75.5 Lymphocytes % 18.6 Monocytes % 5.2 Eosinophils % 0.0 Basophils % 0.2 Nucleated Red Blood Cells % 0.0 Immature Granulocytes # 0.030 Neutrophils # 4.2 Lymphocytes # 1.0 Monocytes # 0.3 Eosinophils # 0.0 Basophils # 0.0 Nucleated Red Blood Cells # 0.0 Sodium Level 136 Potassium Level 4.2 Chloride Level 100 Carbon Dioxide Level 27 Anion Gap 9 Blood Urea Nitrogen 17 Creatinine 0.61 Est Glomerular Filtrat Rate mL/min > 60 Glucose Level 122 Calcium Level 8.9 Phosphorus Level 4.1 Magnesium Level 2.2 Exam/Review of Systems Exam Vitals Vital Signs Date Temp Pulse Resp B/P (MAP) Pulse Ox O2 O2 Flow FiO2 Time Delivery Rate 02/09/19 96 23 96 Nasal 2.0 14:31 Cannula 02/09/19 97.6 110/65 08:26 (80) 02/09/19 28 02:40 Intake and Output 02/08/19 02/08/19 02/09/19 1515:00 23:00 07:00 IntakeIntake Total 240 ml 1200 ml 480 ml OutputOutput Total 3 ml BalanceBalance 240 ml 1200 ml 477 ml Results Results 24hrs Laboratory Tests Test 02/09/19 04:27 White Blood Count 5.5 Red Blood Count 3.59 L Hemoglobin 13.5 L Hematocrit 39.4 L Mean Corpuscular Volume 109.7 H Mean Corpuscular Hemoglobin 37.6 H Mean Corpuscular Hemoglobin Concent 34.3 Red Cell Distribution Width 12.0 Platelet Count 323 Mean Platelet Volume 9.5 Immature Granulocytes % 0.500 H Neutrophils % 75.5 Lymphocytes % 18.6 Monocytes % 5.2 Eosinophils % 0.0 Basophils % 0.2 Nucleated Red Blood Cells % 0.0 Immature Granulocytes # 0.030 Neutrophils # 4.2 Lymphocytes # 1.0 Monocytes # 0.3 Eosinophils # 0.0 Basophils # 0.0 Nucleated Red Blood Cells # 0.0 Sodium Level 136 Potassium Level 4.2 Chloride Level 100 Carbon Dioxide Level 27 Anion Gap 9 Blood Urea Nitrogen 17 Creatinine 0.61 Est Glomerular Filtrat Rate mL/min > 60 Glucose Level 122 Calcium Level 8.9 Phosphorus Level 4.1 Magnesium Level 2.2 Medications Medication Current Medications IV Flush (NS 3 ml) 3 ml PER PROTOCOL IV ; Start 02/05/19 at 04:00 Ondansetron HCl (Zofran Inj) 4 mg Q6H PRN IV NAUSEA/VOMITING; Start 02/05/19 at 04:00 Acetaminophen (Tylenol Tab) 650 mg Q6H PRN PO .PAIN 1-3 OR TEMP; Start 02/05/19 at 04:00 Heparin Sodium (Porcine) (Heparin (5000 Units/1ml)) 5,000 unit Q12 SC Last administered on 02/09/19 08:39; Admin Dose 5,000 UNIT; Start 02/05/19 at 09:00 Albuterol/ Ipratropium (Duoneb) 3 ml Q2H RESP THERAPY PRN HHN SHORTNESS OF BREATH Last administered on 02/07/19 00:39; Admin Dose 3 ML; Start 02/05/19 at 04:00 Efavirenz (Sustiva) 600 mg DAILY PO Last administered on 02/09/19 08:38; Admin Dose 600 MG; Start 02/05/19 at 09:00 Lamivudine/ Zidovudine (Combivir) 1 tab BID PO Last administered on 02/09/19 08:38; Admin Dose 1 TAB; Start 02/05/19 at 10:00 Levalbuterol (Xopenex Neb) 0.63 mg Q3H RESP THERAPY HHN Last administered on 02/09/19 14:31; Admin Dose 0.63 MG; Start 02/05/19 at 08:00 Ipratropium [place] (Atrovent 0.02% (Neb)) 0.5 mg Q3H RESP THERAPY HHN Last administered on 02/09/19 14:31; Admin Dose 0.5 MG; Start 02/05/19 at 08:00 Nicotine (Nicoderm 21 Mg/ 24hr) 1 patch DAILY TRANSDERM Last administered on 02/08/19 08:03; Admin Dose 1 PATCH; Start 02/05/19 at 15:00 Methylprednisolone Sodium Succinate (Solu-Medrol) 40 mg Q6 IV Last administered on 02/09/19 12:07; Admin Dose 40 MG; Start 02/05/19 at 18:00 Tamsulosin HCl (Flomax) 0.4 mg HS PO Last administered on 02/08/19 20:14; Admin Dose 0.4 MG; Start 02/07/19 at 21:00 Phenol (Cepastat Lozenge) 1 lozenge Q1H PRN MT SORE THROAT Last administered on 02/07/19at 16:27; Admin Dose 1 LOZENGE; Start 02/07/19 at 09:30 Levofloxacin (Levaquin) 500 mg DAILY@06 PO Last administered on 02/09/19at 05:31; Admin Dose 500 MG; Start 02/08/19 at 06:00 ERIKA CARO Feb 09, 2019 15:05
[2019-02-09 20:00] VITALS: BP 110/58; PULSE 99; RESP 18
[2019-02-09] MEDS: TAMSULOSIN (SR) 0.4 MG CAP PO SCH (21:52)
[2019-02-10] MEDS: METHYLPREDNISOLONE 40 MG INJ IV SCH ×4 (00:55→18:00)
[2019-02-10 02:00] VITALS: BP 107/5; PULSE 100; RESP 18
[2019-02-10] MEDS: IPRATROPIUM (NEB) 0.5 MG/2.5 ML AMP HHN SCH ×6 (02:36→17:23)
[2019-02-10] MEDS: LEVALBUTEROL (NEB) 0.63 MG/3 ML AMP HHN SCH ×6 (02:36→17:23)
[2019-02-10] MEDS: LEVOFLOXACIN 500 MG TAB PO SCH (07:11)
[2019-02-10 08:01] VITALS: BP 110/61; PULSE 94; RESP 18
[2019-02-10] MEDS: HEPARIN 5,000 UNIT/1 ML VIAL SC SCH (08:25)
[2019-02-10] MEDS: EFAVIRENZ 600 MG TAB PO SCH (08:26)
[2019-02-10] MEDS: NICOTINE (21 MG/24 HR) PATCH TRANSDERM SCH (08:26)
[2019-02-10] MEDS: LAMIVUDINE/ZIDOVUDINE TAB PO SCH (08:26)
[2019-02-10] MEDS ORDERED: ALBU8.5H8 INH (12:01)
[2019-02-10] MEDS ORDERED: PRED20TA PO (12:01)
[2019-02-10] MEDS ORDERED: PRED10TA PO (12:01)
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
[2019-02-10 14:29] VITALS: BP 149/71; PULSE 99; RESP 20
== END 2019-02-10 18:39 | disposition home or self-care (01) | DRG 974 ==
LOC: E/R 17:10 → PP2 22:17
PROVIDERS: ADMIT Internal Medicine; ATTEND Internal Medicine
DX: A41.9 Sepsis, unspecified organism (principal); J96.01 Acute respiratory failure with hypoxia; B20 Human immunodeficiency virus [HIV] disease; J44.1 Chronic obstructive pulmonary disease with (acute) exacerbation; J06.9 Acute upper respiratory infection, unspecified; J40 Bronchitis, not specified as acute or chronic; N40.0 Benign prostatic hyperplasia without lower urinary tract symptoms; F17.200 Nicotine dependence, unspecified, uncomplicated
CPT/HCPCS: 36415; 71045; 80048; 80053; 80307; 81001; 83605; 83735; 84100; 84484; 85025; 85610; 85730; 86360; 87086; 87400; 87536; 93005; 94640; 94644; 94664; 96365; 96368; 96375; J0692; J1100; J1644; J1956; J2920; J2930; J3370; J3475; J7030